=== PATIENT | female | born 1995 ===

== ENCOUNTER → 2020-03-12 | Outpatient (CLI) | payer OTHER | LOC: LAB 08:46 | PROVIDERS: ATTEND Family Medicine | DX: R05 Cough (principal); R06.02 Shortness of breath; Z20.828 Contact with and (suspected) exposure to other viral communicable diseases ==

== ENCOUNTER → 2020-06-12 | Outpatient (CLI) | payer OTHER | LOC: LAB 09:36 | PROVIDERS: ATTEND Family Medicine | DX: U07.1 COVID-19 (principal) ==